=== PATIENT | male | born 1970 | race Two or more races ===

== ENCOUNTER 2024-10-10 20:20 | Inpatient (IN) | payer SELFPAY ==
[~2024-10-10] VITALS: Ht 165.1 cm; Wt 128.5 kg
[2024-10-10] MEDS: SODIUM CHLORIDE 0.9% 1,000 ML IV ONE (03:45)
[2024-10-10] MEDS: ONDANSETRON HCL 4 MG/2 ML VIAL IV ONE (03:45)
[2024-10-10] MEDS: metroNIDAZOLE 500MG/100ML 100 ML IV ONE (04:00)
--- NOTE | 2024-10-10 20:38 | ED.PDOC ---
GI ASSESSMENT HPI Comments HPI: Poor Historian. 54-year-old male presents to emergency depart for evaluation of three day history of nausea vomiting nonbilious nonbloody that is yellow in color and diarrhea that is brownish in color. Patient denies any abdominal pain. Patient feels dizziness and weakness. Denies any sick contacts. Patient denies any fever. Past medical history Diabetes, hypertension hyperlipidemia, coronary artery disease, gout, PA Past surgical history Open heart surgery REVIEW OF SYSTEMS: CONSTITUTIONAL: Denies acute: fever, diaphoresis, chills, HEAD: Denies acute: headache, photophobia Eyes: Denies acute: Double vision, vision loss, eye pain, eye discharge. EARS: Denies acute: tinnitus, hearing loss, ear discharge, ear pain, THROAT: Denies acute: sore throat, swelling, difficulty swallowing , pain with swallowing, change in voice. NECK: Denies acute: neck pain, neck swelling, stiff neck. HEART: Denies acute : chest pain, palpitations, LUNGS: Denies acute: SOB, wheezing, cough, hemoptysis ABDOMEN: Denies acute: abdominal pain, melena , hematemesis, hematochezia SKIN: Denies acute: rash, redness, lesions, itchiness. EXTREMITIES: Denies acute: calf pain, numbness, tingling, weakness, denies pain in extremity. Denies acute: Low back pain. Neuro: Denies acute: focal neurological deficit, motor or sensory focal neurological deficit, tremors, seizure like activity, confusion, change in mental status, loss of bowel or bladder function, cauda equina like symptoms. : Denies acute: dysuria, hematuria, flank pain, increase in urinary frequency. PSYCH: Denies acute: hallucination, suicidal ideation, homicidal ideation. PHYSICAL EXAM: General: no acute distress, awake and alert. Head: normocephalic, atraumatic. Neck: supple, trachea is midline, no swelling. Throat: Normal phonation. Eyes:, no erythema, no purulent discharge, no proptosis, no icterus. Heart: regular rate, regular rhythm, no significant murmur appreciated. Lungs: no apparent respiratory distress, Able to speak in full sentences. No wheezing, no rhonchi, no crackles. No stridors Clear to auscultation bilaterally. Abdomen: non tender to palpation, non distended, soft, no guarding, no rebound, + bowel sounds. Morbidly obese. Neuro: Awake, Alert, oriented to name, self, situation, follows commands GCS=15. Speech is normal. Skin: no petechia, no purpura, no cyanosis, non-pale, not jaundice. Lower extremities: --1/4 - Pitting edema no deformity, no focal swelling, no calf TTP. Makes eye contact. moves all four extremities. Face: no apparent facial droop. Ambulating in the ED independently. Time Seen by MD: 20:30 Reviewed Notes: Nurses Notes, Medications, Allergies Allergies: Coded Allergies: NO KNOWN ALLERGIES (Unverified , 10/10/24) Information Source: Patient Was a procedure done? Was a procedure done?: No GI differential Dx Differential Diagnosis: Other (DDX include but not limited to diverticulitis, colitis, gastroenteritis, acute abdomen, SBO, enteritis, constipation, volvulus, appendicitis, Gallbladder disease, choledocolithiasis, ascending cholangitis, pancreatitis, intraAbdominal mass/neoplasm, hepatitis, UTI, pylonephritis, kidney stone, aneurysm, dissection, Inflammatory bowel disease, gastroparesis, ischemic bowel.) X-Ray, Labs, Meds, VS Vital Signs Date Time Temp Pulse Resp B/P (MAP) Pulse Ox O2 Delivery O2 Flow Rate FiO2 10/10/24 20:41 86 10/10/24 20:30 98.8 91 12 154/106 (122) 97 Lab Test 10/10/24 23:35 10/10/24 22:40 10/10/24 21:37 10/10/24 20:47 Range/Units Troponin I High Sensitivity 31 30 31 </=54 ng/L Lactic Acid Level 1.4 2.3 *H 0.4-2.0 mmol/L White Blood Count 10.4 4.4-10.8 10^3/uL Red Blood Count 5.84 4.5-5.90 10^6/uL Hemoglobin 17.3 13.5-17.5 g/dL Hematocrit 52.0 41.0-53.0 % Mean Corpuscular Volume 89.0 80.0-100.0 fL Mean Corpuscular Hemoglobin 29.6 28.0-32.0 pg Mean Corpuscular Hemoglobin Concent 33.3 32.0-36.0 g/dL Red Cell Distribution Width 14.7 H 11.8-14.3 % Platelet Count 165 140-450 10^3/uL Mean Platelet Volume 9.2 6.9-10.8 fL Neutrophils (%) (Auto) 66.8 37.0-80.0 % Lymphocytes (%) (Auto) 19.2 10.0-50.0 % Monocytes (%) (Auto) 12.2 H 0.0-12.0 % Eosinophils (%) (Auto) 0.8 0.0-7.0 % Basophils (%) (Auto) 1.0 0.0-2.0 % Neutrophils # (Auto) 6.9 1.6-8.6 10 ^3/uL Lymphocytes # (Auto) 2.0 0.4-5.4 10 ^3/uL Monocytes # (Auto) 1.3 0-1.3 10 ^3/uL Eosinophils # (Auto) 0.1 0-0.8 10 ^3/uL Basophils # (Auto) 0.1 0-0.2 10 ^3/uL Nucleated Red Blood Cells 0.0 % Sodium Level 136 136-145 mmol/L Potassium Level 4.4 3.5-5.1 mmol/L Chloride Level 99 98-107 mmol/L Carbon Dioxide Level 28 20-31 mmol/L Anion Gap 9 5-15 Blood Urea Nitrogen 43 H 9-23 mg/dL Creatinine 2.59 H 0.700-1.30 mg/dL Glomerular Filtration Rate Calc 29 >90 mL/min BUN/Creatinine Ratio 16.6 10.0-20.0 Serum Glucose 105 74-106 mg/dL Calcium Level 10.0 8.7-10.4 mg/dL Total Bilirubin 1.4 H 0.2-1.0 mg/dL Aspartate Amino Transferase (AST) 17 13-40 U/L Alanine Aminotransferase (ALT) 21 7-40 U/L Alkaline Phosphatase 97 46-116 U/L Total Protein 7.4 5.7-8.2 g/dL Albumin 4.3 3.2-4.8 g/dL Lipase 52 12-53 U/L Test 10/10/24 20:35 10/10/24 20:34 Range/Units Urine Color Yellow Yellow Urine Clarity Clear Clear Urine pH 6.0 5.0-9.0 Urine Specific [place] 1.015 1.001-1.035 Urine Protein 2+ H Negative Urine Ketones Negative Negative Urine Blood Negative Negative /uL Urine Nitrite Negative Negative Urine Bilirubin Negative Negative Urine Urobilinogen Normal Negative mg/dL Urine Leukocyte Esterase Negative Negative /uL Urine RBC None seen 0 - 3 /hpf Urine Microscopic WBC 1 0-3 /HPF Urine Squamous Epithelial Cells Few <5 /hpf Urine Bacteria None seen None Seen /hpf Urine Yeast (Budding) Occasional None Seen /hpf Urine Glucose 1+ H Normal mg/dL Stool for White Cells Moderate Time of 1ST Reevaluation: 00:30 Reevaluation 1ST: Unchanged Patient Education/Counseling: Diagnosis, Treatment Family Education/Counseling: Other Comments Patient presented with the above HPI.---GI symptoms---workup was initiated. patient was found with the above mentioned diagnosis. the following medications were ordered: please refer to order lists of meds and tests obtained by myself Dr. Garcia. Patient ED course and VS have been stabilized. Patient has been reassessed in the ED and remained in a stable condition. Pertinent incidental findings were discussed with the patient and/or family. Patient/family voices understanding and is agreeable with plan. Patient has been observed in the ED adequate length of time to insure improvement/stability. Escalation of care considered: Consideration of escalation to observation or admission Findings concerning for infectious diarrhea. Patient also stated that these symptoms were similar to his symptoms when he had a heart attack few years back. Patient has multiple comorbidities and a high heart score. Patient was ADMITTED to the medicine team for further evaluation and treatment of their presentation. All the reports of any imaging studies that were ordered by myself were reviewed by myself. Departure 1 Departure Time of Disposition: 23:43 Impression: Primary Impression: Infectious diarrhea in adult patient Disposition: ADMITTED INPATIENT Admit to: Tele Condition: Guarded Discharged With: Self Critical Care Note Critical Care Time?: No Heart Score Heart Score: Heart Score Response (Comments) Value History Slightly Suspicious 0 EKG Normal 0 Age 45-64 1 Risk Factors >3 or Hx ASHD 2 Troponin Normal limit 0 Total 3 JULIANE GARCIA DO Oct 10, 2024 20:37
[2024-10-10 21:27] LABS: Alanine Aminotransferase 21 U/L (7-40); Albumin 4.3 g/dL (3.2-4.8); Alkaline Phosphatase 97 U/L (46-116); Anion Gap 9 (5-15); Aspartate Aminotransferase 17 U/L (13-40); BUN/Creatinine Ratio 16.6 (10.0-20.0); Carbon Dioxide 28 mmol/L (20-31); Chloride 99 mmol/L (98-107); Glucose 105 mg/dL (74-106); Lipase 52 U/L (12-53); Potassium 4.4 mmol/L (3.5-5.1)
[2024-10-10 21:28] LABS: Total Protein 7.4 g/dL (5.7-8.2)
[2024-10-10 21:44] LABS: Bilirubin, Total 1.4 mg/dL (0.2-1.0); Blood Urea Nitrogen 43 mg/dL (9-23); Sodium 136 mmol/L (136-145)
[2024-10-10 21:47] LABS: Lactic Acid w/Reflex 2.3 mmol/L (0.4-2.0)
--- NOTE | 2024-10-10 21:53 | DVH ---
CT SCAN ABDOMEN AND PELVIS WITHOUT CONTRAST CLINICAL HISTORY: abd pain n/v/d and dizzy TECHNIQUE: Helical axial images are obtained from the lung bases through the pelvis without oral cont rast. No intravenous contrast was administered. Coronal and sagittal reformatted images were generate d from thin section reconstructions. One or more of the following radiation dose reduction techniques were used for this examination: automated exposure control, adjustment of the mA and/or kV according to patient size, use of iterative reconstruction technique. COMPARISON: None FINDINGS: LOWER THORAX: Mild scattered atelectasis/ scarring in the imaged lung bases. Coronary artery calcifications. ABDOMEN AND PELVIS: Evaluation of visceral and vascular structures is limited due to lack of contrast administration. As visualized, the unenhanced liver, spleen, pancreas and adrenals appear grossly unremarkable. No si zable, radiopaque cholelithiasis. No hydroureteronephrosis or sizable, obstructing urinary tract calculi identified. Aortoiliac atherosclerotic calcifications. No evidence of abdominal aortic aneurysm. No evidence of small-bowel obstruction. Mild fluid content noted throughout the small bowel. The appe ndix is not clearly identified, however, no pericecal inflammatory changes are noted at this time. De scending and sigmoid colon diverticuli. No definite CT evidence of diverticulitis. No free intraperit sweet air or fluid identified. Midline fat containing umbilical hernia just anterior to the xiphoid. No sizable bladder calculus. Bilateral fat containing inguinal hernia. Multilevel degenerative changes of the lumbar spine. IMPRESSION: Fluid content in the small bowel is relatively nonspecific but can be seen with enteritis. No other d efinite evidence to suggest obstruction at this time. Please correlate clinically. Other findings as above.
[2024-10-10 21:55] LABS: Basophils # (auto) 0.1 10 ^3/uL (0-0.2); Eosinophils # (auto) 0.1 10 ^3/uL (0-0.8); Eosinophils % (auto) 0.8 % (0.0-7.0); Hemoglobin 17.3 g/dL (13.5-17.5); Lymphocytes % (auto) 19.2 % (10.0-50.0); Mean Corpuscular Hemoglobin 29.6 pg (28.0-32.0); Mean Corpuscular Hgb Conc. 33.3 g/dL (32.0-36.0); Monocytes # (auto) 1.3 10 ^3/uL (0-1.3); Monocytes % (auto) 12.2 % (0.0-12.0); Neutrophils # (auto) 6.9 10 ^3/uL (1.6-8.6); Neutrophils % (auto) 66.8 % (37.0-80.0); Platelet Count (auto) 165 10^3/uL (140-450); Red Blood Cells 5.84 10^6/uL (4.5-5.90); Red Cell Distribution Width 14.7 % (11.8-14.3); White Blood Cell 10.4 10^3/uL (4.4-10.8)
[2024-10-10 21:58] LABS: Urine Bacteria None Seen /hpf (None Seen)
[2024-10-10 22:21] LABS: Urine Blood Negative /uL (Negative); Urine Budding Yeast OCCASIONAL /hpf (None Seen); Urine Clarity Clear (Clear); Urine Color Yellow (Yellow); Urine Protein, UAD 2+ (Negative); Urine Specific Gravity 1.015 (1.001-1.035); Urine Squamous Epithelial Cell FEW /hpf (<5); Urine Urobilinogen Normal (Negative); Urine WBC 1 /HPF (0-3)
[2024-10-10] MEDS: FLUCONAZOLE 100 MG TAB PO ONE (22:30)
[2024-10-10] MEDS: CIPROFLOXACIN 400MG/200ML 200 ML IV ONE (23:45)
[2024-10-11] MEDS ORDERED: ONDANSETRON HCL 4 MG/2 ML VIAL IV PRN (00:15)
[2024-10-11] MEDS ORDERED: ACETAMINOPHEN 325 MG TAB PO PRN (00:15)
[2024-10-11] MEDS ORDERED: HYDROcodone-ACET 5/325MG TAB PO PRN (00:15)
[2024-10-11 01:20] VITALS: RESP 18; O2SAT 96
--- NOTE | 2024-10-11 03:15 | DVHHP2 ---
History of Present Illness Reason for Visit: Nausea and vomiting History of Present Illness 54-year-old male presents for evaluation of nausea and vomiting. Patient reports a three day history of being unable to keep any food down. He complains of nausea, vomiting and watery diarrhea. Denies abdominal pain. No fever or chills. Denies eating any spoiled food. No other acute complaints reported. Past Medical History Dyslipidemia, diabetes mellitus, [place] Family History Noncontributory Smoke: No ALCOHOL: none Drugs: None Lives: with Family Review of Systems Review of Systems Review of systems are currently negative otherwise addressed in HPI. Allergies: Coded Allergies: NO KNOWN ALLERGIES (Unverified , 10/10/24) Medications Current Medications Medications Dose Ordered Sig/Bernardo Route Start Time Stop Time Status Last Admin Dose Admin Metronidazole 100 ml @ 100 mls/hr Q8HR IV 10/11/24 06:00 Acetaminophen/ Hydrocodone Bitart 1 tab Q4HP PRN PO 10/11/24 00:15 Ondansetron HCl 4 mg Q4HP PRN IV 10/11/24 00:15 Acetaminophen 650 mg Q6HP PRN PO 10/11/24 00:15 Exam Vital Signs Vital Signs Date Time Temp Pulse Resp B/P (MAP) Pulse Ox O2 Delivery O2 Flow Rate FiO2 10/10/24 20:41 86 10/10/24 20:30 98.8 12 154/106 (122) 97 Exam Gen: 54-year-old male in mild distress, morbidly obese Skin: Warm, dry, normal color and texture, no rash. HEENT: Normocephalic atraumatic, mucous membranes moist and pink. Neck: Cervical and supraclavicular nodes normal without enlargement, trachea is midline, thyroid gland is normal without masses. Pulmonary: Clear to auscultation and percussion bilaterally. Cardiac: Regular rate and rhythm. No murmur Abdomen: Soft, nontender, nondistended, bowel sounds present all 4 quadrants, no guarding, no rigidity, no organomegaly. Extremities: No cyanosis, clubbing, no edema Neuro: Cranial nerves II through XII grossly intact, normal affect and speech, no focal motor deficits. Labs/Xrays ORDERING PHYSICIAN: JULIANE TEMPLETON DO PROCEDURE(s): ABPL - CT AB PEL WO CON-NO ORAL OR IV REASON: abd pain n/v/d and dizzy ORDER NUMBER(s): [id number], ACCESSION NUMBER(s): [id number] CT SCAN ABDOMEN AND PELVIS WITHOUT CONTRAST CLINICAL HISTORY: abd pain n/v/d and dizzy TECHNIQUE: Helical axial images are obtained from the lung bases through the pelvis without oral contrast. No intravenous contrast was administered. Coronal and sagittal reformatted images were generated from thin section reconstructions. One or more of the following radiation dose reduction techniques were used for this examination: automated exposure control, adjustment of the mA and/or kV according to patient size, use of iterative reconstruction technique. COMPARISON: None FINDINGS: LOWER THORAX: Mild scattered atelectasis/ scarring in the imaged lung bases. Coronary artery calcifications. ABDOMEN AND PELVIS: Evaluation of visceral and vascular structures is limited due to lack of contrast administration. As visualized, the unenhanced liver, spleen, pancreas and adrenals appear grossly unremarkable. No sizable, radiopaque cholelithiasis. No hydroureteronephrosis or sizable, obstructing urinary tract calculi identified. Aortoiliac atherosclerotic calcifications. No evidence of abdominal aortic aneurysm. No evidence of small-bowel obstruction. Mild fluid content noted throughout the small bowel. The appendix is not clearly identified, however, no pericecal inflammatory changes are noted at this time. Descending and sigmoid colon diverticuli. No definite CT evidence of diverticulitis. No free intraperitoneal air or fluid identified. Midline fat containing umbilical hernia just anterior to the xiphoid. No sizable bladder calculus. Bilateral fat containing inguinal hernia. Multilevel degenerative changes of the lumbar spine. IMPRESSION: Fluid content in the small bowel is relatively nonspecific but can be seen with enteritis. No other definite evidence to suggest obstruction at this time. Please correlate clinically. Other findings as above. Labs Test 10/10/24 23:35 10/10/24 22:40 10/10/24 21:37 10/10/24 20:47 Range/Units Troponin I High Sensitivity 31 </=54 ng/L Lactic Acid Level 1.4 0.4-2.0 mmol/L White Blood Count 10.4 4.4-10.8 10^3/uL Red Blood Count 5.84 4.5-5.90 10^6/uL Hemoglobin 17.3 13.5-17.5 g/dL Hematocrit 52.0 41.0-53.0 % Mean Corpuscular Volume 89.0 80.0-100.0 fL Mean Corpuscular Hemoglobin 29.6 28.0-32.0 pg Mean Corpuscular Hemoglobin Concent 33.3 32.0-36.0 g/dL Red Cell Distribution Width 14.7 H 11.8-14.3 % Platelet Count 165 140-450 10^3/uL Mean Platelet Volume 9.2 6.9-10.8 fL Neutrophils (%) (Auto) 66.8 37.0-80.0 % Lymphocytes (%) (Auto) 19.2 10.0-50.0 % Monocytes (%) (Auto) 12.2 H 0.0-12.0 % Eosinophils (%) (Auto) 0.8 0.0-7.0 % Basophils (%) (Auto) 1.0 0.0-2.0 % Neutrophils # (Auto) 6.9 1.6-8.6 10 ^3/uL Lymphocytes # (Auto) 2.0 0.4-5.4 10 ^3/uL Monocytes # (Auto) 1.3 0-1.3 10 ^3/uL Eosinophils # (Auto) 0.1 0-0.8 10 ^3/uL Basophils # (Auto) 0.1 0-0.2 10 ^3/uL Nucleated Red Blood Cells 0.0 % Sodium Level 136 136-145 mmol/L Potassium Level 4.4 3.5-5.1 mmol/L Chloride Level 99 98-107 mmol/L Carbon Dioxide Level 28 20-31 mmol/L Anion Gap 9 5-15 Blood Urea Nitrogen 43 H 9-23 mg/dL Creatinine 2.59 H 0.700-1.30 mg/dL Glomerular Filtration Rate Calc 29 >90 mL/min BUN/Creatinine Ratio 16.6 10.0-20.0 Serum Glucose 105 74-106 mg/dL Calcium Level 10.0 8.7-10.4 mg/dL Total Bilirubin 1.4 H 0.2-1.0 mg/dL Aspartate Amino Transferase (AST) 17 13-40 U/L Alanine Aminotransferase (ALT) 21 7-40 U/L Alkaline Phosphatase 97 46-116 U/L Total Protein 7.4 5.7-8.2 g/dL Albumin 4.3 3.2-4.8 g/dL Lipase 52 12-53 U/L Test 10/10/24 20:35 10/10/24 20:34 Range/Units Urine Color Yellow Yellow Urine Clarity Clear Clear Urine pH 6.0 5.0-9.0 Urine Specific [place] 1.015 1.001-1.035 Urine Protein 2+ H Negative Urine Ketones Negative Negative Urine Blood Negative Negative /uL Urine Nitrite Negative Negative Urine Bilirubin Negative Negative Urine Urobilinogen Normal Negative mg/dL Urine Leukocyte Esterase Negative Negative /uL Urine RBC None seen 0 - 3 /hpf Urine Microscopic WBC 1 0-3 /HPF Urine Squamous Epithelial Cells Few <5 /hpf Urine Bacteria None seen None Seen /hpf Urine Yeast (Budding) Occasional None Seen /hpf Urine Glucose 1+ H Normal mg/dL Stool for White Cells Moderate Assessment/Plan Assessment/Plan Assessment Acute enteritis Acute kidney injury Severe dehydration Hypertension Plan Admit the patient to [facility] to the hospitalist Nuria Maintenance IV fluids Continue treatment per orders. Plan discussed with: Patient My Orders Orders - EVY FONTAINE Procedure Category Date Status Time Admit ADMIT 10/11/24 Transmitted 00:02 Metronidazole PHA 10/11/24 In Process 500mg/100ml (Flagyl 06:00 Sodium Chloride 0.9% PHA 10/11/24 In Process 00:15 Basic Metabolic Panel LAB 10/11/24 Logged 04:00 Hydrocodone-Acet PHA 10/11/24 In Process 5/325mg Tab ([place] 00:15 Ondansetron Hcl PHA 10/11/24 In Process (Zofran) 00:15 Complete Blood Count LAB 10/12/24 Verified 04:00 Condition: Stable QUINTEN 10/11/24 In Process 00:02 Acetaminophen Tablet PHA 10/11/24 In Process (Tylenol Tablet) 00:15 Clear Liq Diet DIET 10/11/24 Transmitted Breakfast Bedrest With Bathroom QUINTEN 10/11/24 In Process Privileg 00:02 Date of Service: Oct 11, 2024 Billing Provider: EVY FONTAINE Common Visit Codes: [id number] INP/OBS CARE (MOD) EVY FONTAINE Oct 11, 2024 03:15
[2024-10-11] MEDS: SODIUM CHLORIDE 0.9% 1,000 ML IV ONE (04:56)
[2024-10-11] MEDS: metroNIDAZOLE 500MG/100ML 100 ML IV SCH (05:30)
[2024-10-11 06:15] LABS: Anion Gap 10 (5-15); Carbon Dioxide 23 mmol/L (20-31); Chloride 103 mmol/L (98-107); Potassium 4.3 mmol/L (3.5-5.1); Sodium 136 mmol/L (136-145)
[2024-10-11 06:16] LABS: Calcium 8.8 mg/dL (8.7-10.4)
[2024-10-11 06:22] LABS: BUN/Creatinine Ratio 15.9 (10.0-20.0); Blood Urea Nitrogen 42 mg/dL (9-23); Glucose 150 mg/dL (74-106)
[2024-10-11 07:01] LABS: Rapid Influenza A Negative (Negative); Rapid Influenza B Negative (Negative)
[2024-10-11 07:02] LABS: COVID19 ANTIGEN SOFIA FIA NEGATIVE (NEGATIVE)
[2024-10-11 07:27] VITALS: PULSE 79; RESP 18; O2SAT 98
[2024-10-11] MEDS: amLODIPine BESYLATE 5 MG TAB PO SCH (10:08)
--- NOTE | 2024-10-11 12:44 | ECG ---
[facility] Test Date: 2024-10-10 Test Time: 20:41:13 Pat Name: EVY CARRION Department: ED Room: 0247 Gender: M Erp Engineer: BETH : 1970 Requested By: JULIANE TEMPLETON Order Number: [id number] Reading MD: Xavier Peters Measurements Intervals [place] Rate: 86 P: 67 [place]: 145 QRS: 169 QRSD: 76 T: 44 QT: 325 QTc: 389 Interpretive Statements Sinus rhythm Probable left atrial enlargement Left posterior fascicular block Consider anterior infarct Electronically Signed On 10-12-2024 13:15:33 PST by Xavier Peters Please click the below link to view image of tracing.
[2024-10-11 15:53] VITALS: BP 128/82; PULSE 66; RESP 15; TEMP 97.9; O2SAT 98
[2024-10-11 16:45] VITALS: BP 128/82; PULSE 66; RESP 15; TEMP 97.9; O2SAT 98
[2024-10-11] MEDS: PNEUMOCOCCAL VACC POLYS 25 MCG/0.5 ML VIAL IM ONE (17:15)
[2024-10-11] MEDS: INFLUENZA TRIVALENT 2024-2025 0.5 ML INJ IM ONE (17:15)
[2024-10-11 20:00] VITALS: PULSE 70; RESP 16; O2SAT 99
[2024-10-11 21:00] VITALS: BP 142/99; PULSE 70; RESP 16; TEMP 98.2; O2SAT 99
--- NOTE | 2024-10-11 21:25 | DVHPNRES ---
Progress Note Date Seen: Oct 11, 2024 Resident Creating Document: EVELINA SMITH RESIDENT Has the PT tested + for MRSA If YES, has PT been informed?: No Medical Necessity Reason Pt with a Central, PICC or Fol: No Medical Necessity Reason Nausea vomiting and diarrhea Subjective Review of Systems This is a 54-year-old man with a past medical history of hypertension dyslipidemia having at [facility] presented to the ED with nausea and vomiting of 3 days. The patient on Tuesday the went to a buffet at a restaurant called [employer] where he had regular Telugu food. Go home fell 5 by the nurse that he started feeling a little off but patient did not relate that to the foot. Work on Tuesday and that is when he started having bowel movements associated with nausea and vomiting and was unable to stay steady therefore he was sent home. At home patient continued to have frequent bowel movements and was unable to keep anything down therefore he presented to the ED to be evaluated. Denies abdominal pain, fever or chills. Denies eating any spoiled food close log, fried rice. No other acute complaints reported. In the ED his vitals were temperature 98.8, pulse 91, respiratory rate 12 blood pressure 154/106 pulse oximetry measured. Chemistry was sodium 136, potassium 4.3, creatinine of was 2.64 with GFR 28. Influenza type a and B were unremarkable COVID . Pending hepatitis B and C panels. Stool culture so far showed many growth of normal enteric kamilla. No E coli isolated, no campylobacter toxins isolated either; however, it is still ruling out other pathogens. Constitutional: Denies fever no chills no feeling of malaise HEENT: Denies headache, ear pain, ear discharges, conjunctivitis, nasal discharge throat pain Cardiovascular: Denies chest pain, palpitation, orthopnea, PND, or pedal edema Respiratory: Denies shortness of breath, cough cough, sputum production, hemoptysis, GI: Denies abdominal pain, nausea, vomiting, diarrhea, hematemesis, hematochezia, : Denies frequency, urgency, hematuria, Endocrine: Denies unintentional weight gain or weight loss, feeling of hot flashes, Kevyn: Denies easy bruising, bleeding disorders, epistaxis Musculoskeletal: Denies joint pains, muscle aches Psych: No evidence of depression, susu, suicidal ideation Objective vital signs Vital Sign Date Time Temp Pulse Resp B/P (MAP) Pulse Ox O2 Delivery O2 Flow Rate FiO2 10/11/24 16:45 97.9 66 15 128/82 (97) 98 97.9 10/11/24 15:53 Room Air* 0 21 Total Intake and Output 10/10/24 10/10/24 10/11/24 15:00 23:00 07:00 Intake Total 200 ml Balance 200 ml medications Current Medications Medications Dose Ordered Sig/Bernardo Route Start Time Stop Time Status Last Admin Dose Admin Metronidazole 100 ml @ 100 mls/hr Q8HR IV 10/11/24 06:00 10/11/24 14:10 100 MLS/HR Acetaminophen/ Hydrocodone Bitart 1 tab Q4HP PRN PO 10/11/24 00:15 Ondansetron HCl 4 mg Q4HP PRN IV 10/11/24 00:15 Acetaminophen 650 mg Q6HP PRN PO 10/11/24 00:15 Amlodipine Besylate 5 mg DAILY PO 10/11/24 10:00 10/11/24 10:08 5 MG Examination General Appearance: Morbidly obese male, Alert, Oriented X3, Cooperative, No acute distress HEENT: Atraumatic, PERRLA, EOMI, Mucous membrane moist/pink Respiratory: Clear to auscultation, Normal air movement Cardiovascular: Surgical scar from CABG, Regular rate, Normal S1, Normal S2, No murmurs, no chest wall tenderness Abdominal: Distended, no tenderness, bowel sounds present, no scars noted Extremities: No clubbing, No cyanosis, No edema, Normal pulses, No tenderness/swelling Skin: No rashes, No breakdown, No significant lesion Neuro: Normal gait, Normal speech, Strength at 5/5 X4 ext, Normal tone, Sensation intact, Cranial nerves 3-12 NL, Reflexes 2+ Psych/Mental Status: Mental status NL, Mood NL laboratory and microbiology Laboratory Tests 10/11/24 05:22 10/10/24 21:37 Test 10/11/24 05:22 Range/Units Serum Glucose 150 H 74-106 mg/dL Microbiology Date/Time Source Procedure Growth Status 10/10/24 20:34 Stool Stool Culture - Preliminary Resulted 10/10/24 20:34 Stool Shiga Toxin I & II - Final Resulted 10/10/24 20:34 Stool Clostridium difficile Toxin Assay - Final Resulted Problem List/Assessment/Plan Problem List/Assessment/Plan Assessment Gastroenteritis Lactic acidosis Hyperlipidemia Diabetes hypertension Acute kidney injury due to VMN Severe dehydration Aron on chronic kidney disease, GFR: 28 Morbid obesity, BMI 47 History of CABG Plan Adequate hydration ( oral and maintenance fluid, monitor BP) Regular diet Continue amlodipine Monitor blood pressure closely Hydralazine 10 mg p.r.n. Pending stool culture Code status: Full code Care discussed for more than 35 minutes Case and plan discussed with Dr. Mcintyre Plan discussed with: Patient My Orders My Orders Orders - EVELINA SMITH Procedure Category Date Status Time Basic Metabolic Panel LAB 10/12/24 Verified 04:00 Date of Service: Oct 11, 2024 Billing Provider: TUSHAR MCINTYRE MD Common Visit Codes: [id number] INP/OBS CARE(HIGH) EVELINA SMITH Oct 11, 2024 21:25 TUSHAR MCINTYRE MD Oct 12, 2024 05:54
[2024-10-11] MEDS ORDERED: hydrALAZINE HCL 20 MG/ML VL IV PRN (21:30)
[2024-10-11] MEDS: ATORVASTATIN 20 MG TAB PO SCH (21:50)
[2024-10-12 01:00] VITALS: BP 143/85; PULSE 94; RESP 16; TEMP 98.5; O2SAT 95
[2024-10-12 05:00] VITALS: BP 112/78; PULSE 90; RESP 17; TEMP 98.7; O2SAT 93
[2024-10-12 07:03] LABS: Basophils # (auto) 0.1 10 ^3/uL (0-0.2); Basophils % (auto) 0.9 % (0.0-2.0); Eosinophils # (auto) 0.1 10 ^3/uL (0-0.8); Eosinophils % (auto) 1.5 % (0.0-7.0); Hematocrit 48.8 % (41.0-53.0); Hemoglobin 16.5 g/dL (13.5-17.5); Lymphocytes # (auto) 1.5 10 ^3/uL (0.4-5.4); Lymphocytes % (auto) 19.7 % (10.0-50.0); Mean Corpuscular Hemoglobin 30.2 pg (28.0-32.0); Mean Corpuscular Hgb Conc. 33.9 g/dL (32.0-36.0); Mean Corpuscular Volume 89.2 fL (80.0-100.0); Monocytes # (auto) 0.7 10 ^3/uL (0-1.3); Monocytes % (auto) 9.3 % (0.0-12.0); Neutrophils # (auto) 5.4 10 ^3/uL (1.6-8.6); Neutrophils % (auto) 68.6 % (37.0-80.0); Nucleated Red Blood Cells % 0.2 %; Platelet Count (auto) 158 10^3/uL (140-450); Red Blood Cells 5.47 10^6/uL (4.5-5.90); Red Cell Distribution Width 14.5 % (11.8-14.3); White Blood Cell 7.8 10^3/uL (4.4-10.8)
[2024-10-12 07:04] LABS: Anion Gap 9 (5-15); Carbon Dioxide 24 mmol/L (20-31); Chloride 103 mmol/L (98-107); Potassium 4.9 mmol/L (3.5-5.1); Sodium 136 mmol/L (136-145)
[2024-10-12 07:05] LABS: Calcium 9.2 mg/dL (8.7-10.4)
[2024-10-12 07:10] LABS: BUN/Creatinine Ratio 15.4 (10.0-20.0)
[2024-10-12 07:16] LABS: Blood Urea Nitrogen 46 mg/dL (9-23); Glucose 98 mg/dL (74-106)
[2024-10-12 09:00] VITALS: BP 118/81; PULSE 92; RESP 19; TEMP 97.9; O2SAT 97
--- NOTE | 2024-10-12 11:48 | DVHPN2 ---
Subjective The patient is seen and examined at bedside. Still have abdominal pain. But the patient said he hungry. Reviewed: Care Plan, H&P, Labs, Medications, Previous Orders Changes from previous H/P or p: No Changes Objective Vitals Vital Signs Date Time Temp Pulse Resp B/P (MAP) Pulse Ox O2 Delivery O2 Flow Rate FiO2 10/12/24 09:00 97.9 92 19 118/81 (93) 97 97.9 10/11/24 20:00 Room Air* 0 21 Intake/Output Intake and Output 10/12/24 07:00 Intake Total 1355 ml Balance 1355 ml Intake Oral 355 ml IV Total 1000 ml General Appearance: Alert, Oriented X3, Cooperative, No acute distress HEENT: Atraumatic, PERRLA, EOMI, Mucous membr. moist/pink Neck: Supple Lungs: Clear to auscultation, Normal air movement Cardiovascular: Regular rate, Normal S1, Normal S2, No murmurs, Gallops, Rubs Abdomen: Normal bowel sounds, Soft, No tenderness Extremities: Normal pulses Neuro: Cranial nerves 3-12 NL Psych/Mental Status: Mental status NL Medications Current Medications Medications Dose Ordered Sig/Bernardo Route Start Time Stop Time Status Last Admin Dose Admin Acetaminophen/ Hydrocodone Bitart 1 tab Q4HP PRN PO 10/11/24 00:15 Ondansetron HCl 4 mg Q4HP PRN IV 10/11/24 00:15 Acetaminophen 650 mg Q6HP PRN PO 10/11/24 00:15 Amlodipine Besylate 5 mg DAILY PO 10/11/24 10:00 10/11/24 10:08 5 MG Hydralazine HCl 10 mg Q6HP PRN IV 10/11/24 21:30 Atorvastatin Calcium 40 mg HS PO 10/11/24 22:00 10/11/24 21:50 40 MG Laboratory Results Laboratory Tests 10/12/24 06:27 Chemistry Test 10/12/24 06:27 Calcium Level 9.2 mg/dL (8.7-10.4) Urinalysis Test 10/10/24 20:35 Urine Color Yellow (Yellow) Urine Clarity Clear (Clear) Urine pH 6.0 (5.0-9.0) Urine Specific [place] 1.015 (1.001-1.035) Urine Protein 2+ (Negative) H Urine Ketones Negative (Negative) Urine Blood Negative /uL (Negative) Urine Nitrite Negative (Negative) Urine Bilirubin Negative (Negative) Urine Urobilinogen Normal mg/dL (Negative) Urine Leukocyte Esterase Negative /uL (Negative) Urine RBC None seen /hpf (0 - 3) Urine Microscopic WBC 1 /HPF (0-3) Urine Squamous Epithelial Cells Few /hpf (<5) Urine Bacteria None seen /hpf (None Seen) Urine Yeast (Budding) Occasional /hpf (None Urine Glucose 1+ mg/dL (Normal) H Microbiology Microbiology Date/Time Source Procedure Growth Status 10/10/24 20:34 Stool Stool Culture - Preliminary Resulted 10/10/24 20:34 Stool Shiga Toxin I & II - Final Resulted 10/10/24 20:34 Stool Clostridium difficile Toxin Assay - Final Resulted Labs and/or images reviewed: Labs reviewed by me Assessment/Plan Assessment/Plan Gastroenteritis Lactic acidosis Hyperlipidemia Diabetes hypertension Acute kidney injury due to VMN Severe dehydration Aron on chronic kidney disease, GFR: 28 Morbid obesity, BMI 47 History of CABG Plan Adequate hydration ( oral and maintenance fluid, monitor BP) Regular diet Continue amlodipine Monitor blood pressure closely Hydralazine 10 mg p.r.n. Stool culture negative for any growth. The patient no longer had diarrhea. Continuing to monitor his abdominal pain. Discharge planning. Plan discussed with: Patient Date of Service: Oct 12, 2024 Billing Provider: TUSHAR MELVIN MD Common Visit Codes: [id number] INP/OBS CARE(HIGH) TUSHAR MELVIN MD Oct 12, 2024 11:48
[2024-10-12 13:00] VITALS: BP 127/87; PULSE 80; RESP 19; TEMP 98.4; O2SAT 96
[2024-10-12 17:00] VITALS: BP 129/88; PULSE 74; RESP 19; TEMP 97.8; O2SAT 95
[2024-10-12 21:00] VITALS: BP 147/93; PULSE 76; RESP 18; TEMP 98.3; O2SAT 97
[2024-10-13 05:00] VITALS: BP 146/99; PULSE 96; RESP 19; TEMP 98.1; O2SAT 93
[2024-10-13 08:30] VITALS: BP 140/84; PULSE 88; RESP 12; TEMP 97.7; O2SAT 96
[2024-10-13 12:51] VITALS: BP 139/99; PULSE 86; RESP 16; TEMP 98.6; O2SAT 99
[2024-10-13] MEDS ORDERED: MET500T PO (15:29)
[2024-10-13] MEDS ORDERED: LEVO500T91 PO (15:29)
--- NOTE | 2024-10-13 15:30 | DVHDS2 ---
Discharge Summary Date of Admission Oct 10, 2024 at 23:59 Date of Discharge: Oct 13, 2024 Admitting Diagnosis Gastroenteritis Lactic acidosis Hyperlipidemia Diabetes hypertension Acute kidney injury due to VMN Severe dehydration Aron on chronic kidney disease, GFR: 28 Morbid obesity, BMI 47 History of CABG Labs/Diagnostic Data: Laboratory Results Test 10/12/24 06:27 10/11/24 06:00 10/11/24 05:22 10/10/24 23:35 White Blood Count 7.8 10^3/uL (4.4-10.8) Red Blood Count 5.47 10^6/uL (4.5-5.90) Hemoglobin 16.5 g/dL (13.5-17.5) Hematocrit 48.8 % (41.0-53.0) Mean Corpuscular Volume 89.2 fL (80.0-100.0) Mean Corpuscular Hemoglobin 30.2 pg (28.0-32.0) Mean Corpuscular Hemoglobin Concent 33.9 g/dL (32.0-36.0) Red Cell Distribution Width 14.5 % (11.8-14.3) Platelet Count 158 10^3/uL (140-450) Mean Platelet Volume 9.3 fL (6.9-10.8) Neutrophils (%) (Auto) 68.6 % (37.0-80.0) Lymphocytes (%) (Auto) 19.7 % (10.0-50.0) Monocytes (%) (Auto) 9.3 % (0.0-12.0) Eosinophils (%) (Auto) 1.5 % (0.0-7.0) Basophils (%) (Auto) 0.9 % (0.0-2.0) Neutrophils # (Auto) 5.4 10 ^3/uL (1.6-8.6) Lymphocytes # (Auto) 1.5 10 ^3/uL (0.4-5.4) Monocytes # (Auto) 0.7 10 ^3/uL (0-1.3) Eosinophils # (Auto) 0.1 10 ^3/uL (0-0.8) Basophils # (Auto) 0.1 10 ^3/uL (0-0.2) Nucleated Red Blood Cells 0.2 % Sodium Level 136 mmol/L (136-145) Potassium Level 4.9 mmol/L (3.5-5.1) Chloride Level 103 mmol/L (98-107) Carbon Dioxide Level 24 mmol/L (20-31) Anion Gap 9 (5-15) Blood Urea Nitrogen 46 mg/dL (9-23) Creatinine 2.98 mg/dL (0.700-1.30) Glomerular Filtration Rate Calc 24 mL/min (>90) BUN/Creatinine Ratio 15.4 (10.0-20.0) Serum Glucose 98 mg/dL (74-106) Calcium Level 9.2 mg/dL (8.7-10.4) Influenza Type A Antigen Negative (Negative) Influenza Type B Antigen Negative (Negative) SARS-CoV-2 Antigen (Rapid) Negative (NEGATIVE) Troponin I High Sensitivity 31 ng/L (</=54) Test 10/10/24 22:40 10/10/24 20:47 10/10/24 20:35 10/10/24 20:34 Lactic Acid Level 1.4 mmol/L (0.4-2.0) Total Bilirubin 1.4 mg/dL (0.2-1.0) Aspartate Amino Transferase (AST) 17 U/L (13-40) Alanine Aminotransferase (ALT) 21 U/L (7-40) Alkaline Phosphatase 97 U/L (46-116) Total Protein 7.4 g/dL (5.7-8.2) Albumin 4.3 g/dL (3.2-4.8) Lipase 52 U/L (12-53) Urine Color Yellow (Yellow) Urine Clarity Clear (Clear) Urine pH 6.0 (5.0-9.0) Urine Specific [place] 1.015 (1.001-1.035) Urine Protein 2+ (Negative) Urine Ketones Negative (Negative) Urine Blood Negative /uL (Negative) Urine Nitrite Negative (Negative) Urine Bilirubin Negative (Negative) Urine Urobilinogen Normal mg/dL (Negative) Urine Leukocyte Esterase Negative /uL (Negative) Urine RBC None seen /hpf (0 - 3) Urine Microscopic WBC 1 /HPF (0-3) Urine Squamous Epithelial Cells Few /hpf (<5) Urine Bacteria None seen /hpf (None Seen) Urine Yeast (Budding) Occasional /hpf (None Urine Glucose 1+ mg/dL (Normal) Stool for White Cells Moderate Other Laboratory Tests 10/12/24 06:27 Brief Hx & Hospital Course: This is a 54 years old male come to emergency department because of intractable nausea or vomiting and diarrhea for three day. The patient can not keep any food down. He had watery diarrhea. No fever or chill. The patient did not eat any abnormal food or exotic food or any spoiled food. The patient did not have any travel history not eating any fresh fruit. The patient was admitted. CT scan showed enteritis. The patient continuing to have nausea and vomiting. Subsequently we doing better. Stool culture did not show any abnormality is remained negative. Today the patient tolerated regular diet. Patient did not have any nausea or vomiting. I will discharge patient home. Advised the patient to follow up with primary care physician 1-2. Advised the patient to get referral to GI specialist for colonoscopy for screening also patient may need endoscopy. Activity as tolerated. Diet per home diet. Physical exam: HEENT: Normocephalic atraumatic pupils equal react to light and accommodation. Extraocular muscles intact, conjunctiva pink, oropharynx moist, no thrush, no exudate. Lymphatic: No lymphadenopathy Cardiovascular exam: S1, S2 was heard. No murmurs, rubs, gallops Lung: Clear on auscultation bilaterally, no wheeze, rale, rhonchi. GI: Abdominal soft, nondistended, nontenderness, positive bowel sounds. Extremity: No crepitus, cyanosis, edema. Pedal pulses present bilateral. Full range of motion. Skin: Normal turgor, no rash. Psych: Alert, oriented x3. Neurology: No focal deficits, cranial nerve II to XII grossly intact. This medical document was created using an electronic medical record system with [employer] direct computerized dictation system. Although this document has been carefully reviewed, there may still be some phonetic and typographical errors. These areas are purely typographical due to imperfections of the software programs, and do not reflect any compromise in the patient's medical care. Condition at Discharge: Stable Final Diagnosis/Problems List Gastroenteritis Lactic acidosis Hyperlipidemia Diabetes hypertension Acute kidney injury due to VMN Severe dehydration Aron on chronic kidney disease, GFR: 28 Morbid obesity, BMI 47 History of CABG Discharge Disposition: Home Discharge Instruct/Medications Diet: Regular Activity: No Restrictions, As Tolerated Follow Up/Referral: pcp 1-2 weeks Medications: levaquin 500mg qday flagyl 500mg tid Discharge Statement: "Patient was advised to return to the ER or call 911 if any headaches, dizziness, shortness of breath, chest pain, abdominal pain, bleeding, fevers, or worsening of medical condition. Patient was counseled about treatment plan, medications, possible side effects, patientverbalized understanding. All questions were answered to the best of my ability. This discharge took greater then 30 minutes in planning, reviewing documentation, counseling the patient, and discussing with other team members." ASSESSMENT ASSESSMENT Assessment enteritis Date of Service: Oct 13, 2024 Billing Provider: TUSHAR MELVIN MD Common Visit Codes: 61039-MMW/OBS DISCH DAY >30min TUSHAR MELVIN MD Oct 13, 2024 15:30
[2024-10-13] MEDS ORDERED: LOPE2CAP16 PO (15:31)
[2024-10-13 16:30] VITALS: BP 133/91; PULSE 80; RESP 16; TEMP 98; O2SAT 97
[2024-10-13 18:14] VITALS: BP 133/91; PULSE 80; RESP 16; TEMP 98; O2SAT 97
[2024-10-15 10:27] LABS: Hepatitis B Surface Antibody Negative (Negative); Hepatitis C Antibody Negative (Negative)
== END 2024-10-13 19:09 | disposition home or self-care (01) | DRG 391 ==
LOC: ER 20:20 → OVERFLOW 23:59 → EAST 10-11 15:41
PROVIDERS: ADMIT Internal Medicine; ATTEND Internal Medicine
DX: A09 Infectious gastroenteritis and colitis, unspecified (principal); N17.0 Acute kidney failure with tubular necrosis; E87.20 Acidosis, unspecified; Z68.42 Body mass index [BMI] 45.0-49.9, adult; E86.0 Dehydration; Z20.822 Contact with and (suspected) exposure to COVID-19; E78.5 Hyperlipidemia, unspecified; N18.9 Chronic kidney disease, unspecified; E66.01 Morbid (severe) obesity due to excess calories; I12.9 Hypertensive chronic kidney disease with stage 1 through stage 4 chronic kidney disease, or unspecified chronic kidney disease; Z95.1 Presence of aortocoronary bypass graft; E11.22 Type 2 diabetes mellitus with diabetic chronic kidney disease; Z79.4 Long term (current) use of insulin; Z79.899 Other long term (current) drug therapy
CPT/HCPCS: 36415; 74176; 80048; 80053; 81001; 83605; 83690; 84484; 85025; 85048; 86706; 86803; 87045; 87177; 87426; 87427; 87493; 87804; 93005; 96365; G0378; J2405; J3490